=== PATIENT | male | born 2000 | race Caucasian/White ===

== ENCOUNTER 2023-08-03 18:27 | Emergency (ER) | payer SELFPAY ==
[~2023-08-03] VITALS: Ht 177.8 cm; Wt 75.0 kg
[2023-08-03 18:40] VITALS: BP 128/77; PULSE 116; RESP 16; TEMP 98.6; O2SAT 99
== END 2023-08-03 18:49 ==
LOC: ER 18:27
DX: S80.812A Abrasion, left lower leg, initial encounter (principal); Z88.1 Allergy status to other antibiotic agents; Z72.89 Other problems related to lifestyle; V89.2XXA Person injured in unspecified motor-vehicle accident, traffic, initial encounter; Y93.89 Activity, other specified; Y92.89 Other specified places as the place of occurrence of the external cause; Y99.8 Other external cause status
CPT/HCPCS: 99283